=== PATIENT | female | born 1980 | race Caucasian/White ===

== ENCOUNTER 2023-11-27 08:36 | Outpatient (CLI) | payer OTHER, SELFPAY ==
--- NOTE | 2023-11-27 09:15 | CRLHL7_ITS ---
For Patients: As a result of the Cures Act, medical imaging exams and procedure reports are released immediately into your electronic medical record. You may view this report before your referring provider. If you have questions, please contact your health care provider. PROCEDURE PERFORMED: Right inferior thyroid FNA for thyroid nodule. INDICATION: Thyroid nodule. FINDINGS: Right inferior thyroid nodule measuring 3.1 centimeters x 2.5 centimeters x 2.3 centimeters TI-RADS 4 nodule recommendation for FNA. PROCEDURE: The risks and benefits of the procedure were explained to the patient and questions were answered. Consent was obtained. The skin was prepped in the usual sterile fashion. Five passes of the mass were performed with 25-gauge needles. The specimens were collected and sent to the lab for further analysis. The patient tolerated the procedure well without complications. Wound care was discussed with the patient and the patient was instructed to watch for signs of bleeding and infection after discharge. The patient will call a primary care physician if any problems develop. POST-PROCEDURE DIAGNOSIS: Status post thyroid right inferior FNA for thyroid nodule. MEDICATIONS GIVEN: Lidocaine for local anesthesia. SPECIMEN(S): 5 specimens collected and sent to lab for further analysis. COMPLICATIONS: No complications noted. Reviewed ultrasound results following FNA shows no signs of extravasation, active bleeding or hematoma. DRAINS: None. ESTIMATED BLOOD LOSS: Less than 10 cc. PHYSICIAN(S) AND ASSISTANTS (if any): ANGEL Dominguez Please call with questions. ANGEL Dominguez ADDITIONAL COMMENTS: Patient tolerated the procedure well without complications. [facility] Protocol A. Pre-procedure verification complete: Yes 1-relevant information / documentation available, reviewed and properly matched to the patient; 2-consent accurate and complete, 3-equipment and supplies available. B. Site marking complete: Yes Site marked if not in continuous attendance with patient. C. TIME OUT completed: Yes Time Out was conducted just prior to starting procedure to verify the eight required elements: 1-patient identity, 2-consent accurate and complete, 3-position, 4-correct side/site marked (if applicable), 5-procedure, 6-relevant images / results properly labeled and displayed (if applicable), 7-antibiotics / irrigation fluids (if applicable), 8-safety precautions. Dictated by Waqar Kraus MD @ 11/27/2023 11:05:52 AM (Electronically Signed)
== END 2023-11-27 08:37 | disposition home or self-care (01) ==
LOC: US 08:39
PROVIDERS: PCP Family Medicine; Visit Provider Family Medicine
DX: E04.2 Nontoxic multinodular goiter (principal)
CPT/HCPCS: 10005; 88173